=== PATIENT | female | born 1945 | race Caucasian/White ===

== ENCOUNTER 2022-08-01 12:32 | Outpatient (CLI) | payer MEDICARE, OTHER | END 2022-08-01 12:33 | disposition home or self-care (01) | LOC: BICMRI 12:32 | PROVIDERS: ATTEND Neurological Surgery | DX: M41.129 Adolescent idiopathic scoliosis, site unspecified (principal); M50.11 Cervical disc disorder with radiculopathy, high cervical region; M48.02 Spinal stenosis, cervical region; M25.78 Osteophyte, vertebrae; M47.811 Spondylosis without myelopathy or radiculopathy, occipito-atlanto-axial region; M50.121 Cervical disc disorder at C4-C5 level with radiculopathy; M50.122 Cervical disc disorder at C5-C6 level with radiculopathy; M50.123 Cervical disc disorder at C6-C7 level with radiculopathy; M47.813 Spondylosis without myelopathy or radiculopathy, cervicothoracic region; M48.03 Spinal stenosis, cervicothoracic region | CPT/HCPCS: 72141 ==

== ENCOUNTER 2023-08-14 12:30 | Outpatient (CLI) | payer MEDICARE, OTHER | END 2023-08-14 12:31 | disposition home or self-care (01) | LOC: PET 12:30 | PROVIDERS: ATTEND Psychiatry & Neurology Neurology | DX: R41.3 Other amnesia (principal) | CPT/HCPCS: 78803; A9552 ==